=== PATIENT | male | born 1985 | race Caucasian/White ===

== ENCOUNTER 2017-05-12 12:44 | Emergency (ER) | payer BC ==
--- NOTE | 2017-05-12 13:42 | EDM.PDOC ---
ED HPI GENERAL MEDICAL PROBLEM - General Chief Complaint: Chest Pain Stated Complaint: CHEST PAIN Time Seen by Provider: 05/12/17 13:18 Source of Information: Reports: Patient, RN Notes Reviewed History Limitations: Reports: No Limitations - History of Present Illness INITIAL COMMENTS - FREE TEXT/NARRATIVE: The patient states that he has had sharp anterior chest pain on and off for the past 2 weeks. When present, it only lasts for about 5-10 seconds, and he may go days in between episodes. The pain is not inducible or otherwise modifiable. He has not had any associated dyspnea, nausea, diaphoresis, or sense of impending doom, or palpitations. He does acknowledges that he has been feeling quite anxious, and that when anxious, his heart rate goes up. He states that he never has symptoms if he is staying active. He states that he had similar symptoms about 6 years ago, when he was under emotional stress. He has not sought prior medical evaluation. The patient acknowledges that he takes large quantities of GNLD vitamins. It is noted that the patient's oxygen saturation is 100% on room air. The patient does not have a PCP. Chest Pain Score (Numeric/FACES): 4 - Related Data Allergies Allergy/AdvReac Type Severity Reaction Status Date / Time guaifenesin [From Robitussin] Allergy Bleeding Verified 05/12/17 13:16 Home Meds: Home Meds . 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) ED ROS GENERAL - Review of Systems Review Of Systems: See Below Constitutional: Reports: No Symptoms HEENT: Reports: No Symptoms Respiratory: Reports: No Symptoms Cardiovascular: Reports: No Symptoms Endocrine: Reports: No Symptoms GI/Abdominal: Reports: No Symptoms : Reports: No Symptoms Musculoskeletal: Reports: No Symptoms Skin: Reports: No Symptoms Neurological: Reports: No Symptoms Psychiatric: Reports: Anxiety Hematologic/Lymphatic: Reports: No Symptoms Immunologic: Reports: No Symptoms ED EXAM, GENERAL - Physical Exam Exam: See Below Exam Limited By: No Limitations General Appearance: Alert, WD/WN, No Apparent Distress, Anxious Eye Exam: Bilateral Eye: Normal Inspection Ears: Normal External Exam, Hearing Grossly Normal Nose: Normal Inspection, No Blood Throat/Mouth: Normal Inspection, Normal Lips, Normal Voice, No Airway Compromise Head: Atraumatic, Normocephalic Neck: Normal Inspection, Full Range of Motion Respiratory/Chest: No Respiratory Distress, Lungs Clear, Normal Breath Sounds, No Accessory Muscle Use, Chest Non-Tender Cardiovascular: Normal Peripheral Pulses, Regular Rate, Rhythm, No Gallop, No JVD, No Murmur, No Rub Peripheral Pulses: 4+: Radial (L), Radial (R) GI/Abdominal: Normal Bowel Sounds, Soft, Non-Tender, No Organomegaly, No Distention, No Abnormal Bruit, No Mass (Male) Exam: Deferred Rectal (Males) Exam: Deferred Back Exam: Normal Inspection, Full Range of Motion, NT Extremities: Normal Inspection, Normal Range of Motion, No Pedal Edema, Normal Capillary Refill Neurological: Alert, Oriented, Normal Cognition, No Motor/Sensory Deficits Psychiatric: Normal Affect, Anxious Skin Exam: Warm, Dry, Intact, Normal Color, No Rash EKG INTERPRETATION EKG Date: 05/12/17 Time: 12:52 Rhythm: Other (Sinus tachycardia) Rate (Beats/Min): 115 [place]: RAD-Right [place] Deviation P-Wave: Present QRS: Normal ST-T: Normal QT: Normal Comparison: NA - No Prior EKG Course - Vital Signs Last Recorded V/S: Last Vital Signs Temp 36.6 C 05/12/17 13:11 Pulse 101 H 05/12/17 13:11 Resp 16 05/12/17 13:11 BP 113/100 H 05/12/17 13:11 Pulse Ox 98 05/12/17 13:11 - Orders/Labs/Meds Orders: Active Orders 24 hr Category Date Time Status EKG Documentation Completion [RC] STAT Care 05/12/17 13:36 Active Chest 2V [CR] Stat Exams 05/12/17 13:36 Taken Labs: Laboratory Tests 05/12/17 05/12/17 05/12/17 Range/Units 13:48 13:48 13:48 WBC 9.60 H (4.23-9.07) K/mm3 RBC 5.19 (4.63-6.08) M/mm3 Hgb 15.3 (13.7-17.5) gm/L Hct 45.7 (40.1-51.0) % MCV 88.1 (79.0-92.2) fl MCH 29.5 (25.7-32.2) pg MCHC 33.5 (32.2-35.5) g/dl RDW Std Deviation 43.8 (35.1-43.9) fL Plt Count 192 (163-337) K/mm3 MPV 10.0 (9.4-12.3) fl Neutrophils % (Manual) 74 H (40-60) % Band Neutrophils % 0 (0-10) % Lymphocytes % (Manual) 17 L (20-40) % Atypical Lymphs % 0 % Monocytes % (Manual) 6 (2-10) % Eosinophils % (Manual) 2 (0.8-7.0) % Basophils % (Manual) 1 (0.2-1.2) Platelet Estimate Adequate RBC Morph Comment Normal PT 11.3 (8.0-13.0) SECONDS INR 1.03 APTT 27 (22-36) SECONDS D-Dimer, Quantitative < 0.19 L (0.19-0.59) mg/L Sodium 138 (136-145) mEq/L Potassium 3.2 L (3.5-5.1) mEq/L Chloride 103 (98-107) mEq/L Carbon Dioxide 23 (21-32) mEq/L Anion Gap 15.2 H (5-15) BUN 16 (7-18) mg/dL Creatinine 1.0 (0.7-1.3) mg/dL Est Cr Clr Drug Dosing 118.56 mL/min Estimated GFR (MDRD) > 60 (>60) mL/min BUN/Creatinine Ratio 16.0 (14-18) Glucose 98 (74-106) mg/dL Calcium 9.0 (8.5-10.1) mg/dL Total Bilirubin 1.6 H (0.2-1.0) mg/dL AST 14 L (15-37) U/L ALT 34 (16-63) U/L Alkaline Phosphatase 72 (46-116) U/L Troponin I < 0.017 (0.00-0.056) ng/mL NT-Pro-B Natriuret Pep 35 (0-125) pg/mL Total Protein 7.5 (6.4-8.2) g/dl Albumin 4.2 (3.4-5.0) g/dl Globulin 3.3 gm/dL Albumin/Globulin Ratio 1.3 (1-2) - Re-Assessments/Exams Free Text/Narrative Re-Assessment/Exam: 05/12/17 13:41 The patient's ECG demonstrates sinus tachycardia with a significant right axis deviation of 129. His oxygen saturation is noted to be 100% on room air, consistent with hyperventilation. These findings are concerning for a PE. I have ordered a workup that includes a D-dimer. 05/12/17 14:13 Two-view chest radiograph appears to be grossly normal. Cardiac silhouette is within normal limits. No pulmonary vascular congestion. No pleural effusions. No focal infiltrate. No pneumothorax. Formal read per the Radiologist pending. 05/12/17 14:55 Test results discussed with the patient. Today's workup is grossly unremarkable , and does not explain the cause of the patient's chest pain, although I suspect it is anxiety-related. I will refer him to the clinic, where he can discuss treatment options for anxiety. Departure - Departure Time of Disposition: 14:56 Disposition: Home, Self-Care 01 Condition: Good Clinical Impression: Chest pain of unknown etiology - Discharge Information Instructions: Chest Pain Observation Referrals: PCP,Justo [Primary Care Provider] - Breezy Joshua [Physician] - Forms: ED Department Discharge Additional Instructions: You were seen in the emergency room for intermittent chest pain over the past couple of weeks. Workup in the ER included blood work, an ECG, and a chest x-ray. Your entire workup was unremarkable. You are not anemic. You have not suffered a heart attack. You do not have pneumonia or a collapsed lung. You do not have a blood clot in your lungs. You are not suffering from congestive heart failure. The cause of your chest pain is not certain, however, is MOST LIKELY related to anxiety, as you were found to be hyperventilating in the ER. If your symptoms continue, we recommend that you follow-up with Dr. Joshua in the clinic, to discuss treatment options for anxiety. If any other problems, please do not hesitate to return to the ER. - My Orders Last 24 Hours: My Active Orders 05/12/17 13:36 EKG Documentation Completion [RC] STAT Chest 2V [CR] Stat - Assessment/Plan Last 24 Hours: My Active Orders 05/12/17 13:36 EKG Documentation Completion [RC] STAT Chest 2V [CR] Stat
--- NOTE | 2017-05-13 07:05 | CR ---
Chest: Two views of the chest were obtained. Comparison: No prior study. Heart size and mediastinum are normal. Lungs are clear. Bony structures are within normal limits. Impression: 1. Nothing acute is identified on two-view chest x-ray. Diagnostic code #1
== END 2017-05-12 15:40 | disposition home or self-care (01) ==
LOC: JD.ED 12:44
DX: R07.9 Chest pain, unspecified (principal); Z88.8 Allergy status to other drugs, medicaments and biological substances; Z87.891 Personal history of nicotine dependence
CPT/HCPCS: 36415; 71020; 71020-26; 80053; 83880; 84484; 85025; 85379; 85610; 85730; 93005; 93010; 99283-25; 99285-25